=== PATIENT | male | born 1980 | race Caucasian/White ===

== ENCOUNTER 2023-11-06 11:00 | Emergency (ER) | payer OTHER, SELFPAY ==
[2023-11-06 11:21] VITALS: BP 132/63; PULSE 83; RESP 18; TEMP 36.4; O2SAT 97; BMI 26.5
--- NOTE | 2023-11-06 11:31 | ED_ITS ---
HPI - Wound/Laceration <ANAHI Jerome Last Filed: 11/06/23 12:56> General Chief Complaint: Wound/Laceration Stated Complaint: laceration on l hand Time Seen by Provider: 11/06/23 11:28 Source: patient Mode of arrival: Ambulatory History of Present Illness HPI narrative: This is a 42-year-old male presents emergency department due to left palm laceration. Patient was walking on some steps when he tripped and slammed his hand onto a exposed screw causing laceration to the palm of his hand. Maintains full flexion-extension of his fingers as well as the ability to internal control analyst things as well as abduct and adduct his thumb. His tetanus is not up-to-date. This happened last night. Related Data Previous Rx's Medication Instructions Recorded cephalexin 500 mg capsule 500 mg PO QID 7 days #28 caps 11/06/23 Allergies Allergy/AdvReac Type Severity Reaction Status Date / Time nickel Allergy Intermediate Blister Verified 11/06/23 11:25 Review of Systems <ANAHI Jerome Last Filed: 11/06/23 12:56> Review of Systems Narrative: GENERAL: Denies chills, fatigue, malaise, fever, sweats. HEENT: Denies sinus pain, ear pain, sore throat, difficulty swallowing, dizziness. RESPIRATORY: Denies dyspnea, cough, wheezing, hemoptysis, sputum. CARDIOVASCULAR: Denies chest pain, palpitations, orthopnea, edema, GASTROINTESTINAL: Denies nausea, vomiting, abdominal pain, diarrhea, constipation, melena. : Denies dysuria, frequency, incontinence, hematuria, urinary retention. MUSCULOSKELETAL: denies weakness, joint pain, or bony pain SKIN: Palm laceration NEUROLOGIC: Denies weakness, headache, numbness, change in speech, confusion, seizures, incoordination. PSYCHIATRIC: No concerning psychosocial issues. 12 point review of systems is negative except for those stated above Patient History <ANAHI Jerome Last Filed: 11/06/23 12:56> Social History Smoking Status: Never smoker Smoking Status: Never smoker alcohol intake frequency: a few times a month Substance Use Type: does not use Exam <ANAHI Jerome Last Filed: 11/06/23 12:56> Narrative Exam Narrative: GENERAL: Well-developed patient, in mild distress. HEAD: Atraumatic. Normocephalic. EYES: Pupils equal round and reactive. Extraocular motions intact. No scleral icterus. No injection or drainage. ENT: Nose without bleeding, purulent drainage. Throat without erythema, tonsillar hypertrophy or exudate. Airway patent. NECK: Trachea midline. Non tender EXTREMITIES: No edema or joint tenderness. NEURO: AOx3. SKIN: Approximately 4 cm laceration to the palm of the left hand. Full flexion and extension of the fingers as well as the ability to abduct and adduct his thumb. No active bleeding. Initial Vital Signs Initial Vital Signs: Vital Signs Temperature 97.6 F 11/06/23 11:21 Pulse Rate 83 11/06/23 11:21 Respiratory Rate 18 11/06/23 11:21 Blood Pressure 132/63 11/06/23 11:21 Pulse Oximetry 97 11/06/23 11:21 Oxygen Delivery Method Room Air 11/06/23 11:21 <Mike Lovelace DO - Last Filed: 11/06/23 15:59> Initial Vital Signs Initial Vital Signs: Vital Signs Temperature 97.6 F 11/06/23 11:21 Pulse Rate 83 11/06/23 11:21 Respiratory Rate 18 11/06/23 11:21 Blood Pressure 132/63 11/06/23 11:21 Pulse Oximetry 97 11/06/23 11:21 Oxygen Delivery Method Room Air 11/06/23 11:21 Procedures <Jeovanny Vilchis PA-C - Last Filed: 11/06/23 12:56> Laceration Repair Laceration 1: Time of procedure: 12:51 Site: hand Side (If applicable): left Size (cm): 4 Description: linear Depth: simple, single layer Local Anesthetic: lidocaine 1% and with epi Amount of anesthesia used (mL): 6 Pre-repair: wound explored, irrigated extensively and cleansed with chlorhexadine Skin layer closed with: nylon Skin layer suture size: 5-0 Number of sutures: 7 Technique: simple, interrupted Course <ANAHI Jerome Last Filed: 11/06/23 12:56> Orders Ordered: Discontinued Medications Hydrocodone Bitart/Acetaminophen (Hydrocodone/Acet 5/325 Tablet) 1 tab PO NOW ONE Stop: 11/06/23 11:43 Last Admin: 11/06/23 11:48 Dose: 1 tab Documented By: MICHELLE Diphtheria/Tetanus/Acell Pertussis (Tet,Diph,Pertuss(Acell),Vac/Pf 0.5 Ml Syringe) 0.5 ml IM .ONCE ONE Stop: 11/06/23 11:36 Last Admin: 11/06/23 11:48 Dose: 0.5 ml Documented By: MICHELLE Lidocaine/Epinephrine (Lidocaine 1% W/Epi) 4 ml INJ INTRA-OP ONE Stop: 11/06/23 11:35 Last Admin: 11/06/23 11:50 Dose: 4 ml Documented By: MICHELLE Vital Signs Vital signs: Vital Signs - 8 hr 11/06/23 11:21 11/06/23 13:01 Temperature 97.6 F 97.8 F Pulse Rate 83 78 Respiratory Rate 18 18 Blood Pressure 132/63 107/61 Pulse Oximetry 97 96 Oxygen Delivery Method Room Air Room Air <Mike Lovelace DO - Last Filed: 11/06/23 15:59> Orders Ordered: Discontinued Medications Hydrocodone Bitart/Acetaminophen (Hydrocodone/Acet 5/325 Tablet) 1 tab PO NOW ONE Stop: 11/06/23 11:43 Last Admin: 11/06/23 11:48 Dose: 1 tab Documented By: MICHELLE Diphtheria/Tetanus/Acell Pertussis (Tet,Diph,Pertuss(Acell),Vac/Pf 0.5 Ml Syringe) 0.5 ml IM .ONCE ONE Stop: 11/06/23 11:36 Last Admin: 11/06/23 11:48 Dose: 0.5 ml Documented By: MICHELLE Lidocaine/Epinephrine (Lidocaine 1% W/Epi) 4 ml INJ INTRA-OP ONE Stop: 11/06/23 11:35 Last Admin: 11/06/23 11:50 Dose: 4 ml Documented By: MICHELLE Vital Signs Vital signs: Vital Signs - 8 hr 11/06/23 11:21 11/06/23 13:01 Temperature 97.6 F 97.8 F Pulse Rate 83 78 Respiratory Rate 18 18 Blood Pressure 132/63 107/61 Pulse Oximetry 97 96 Oxygen Delivery Method Room Air Room Air MDM - Wound/Laceration <Jeovanny Vilchis PA-C - Last Filed: 11/06/23 12:56> MDM Narrative Medical decision making narrative: ED course: This is a 42-year-old male presents emergency department due to a laceration of the left hand that happened approximately 14 hours ago. Significant laceration and was closed without complications with sutures. We will prescribe antibiotics based on the nature of the wound for infection prophylaxis. Tetanus updated. Patient maintain full motion throughout his fingers and hands and very low concern for any kind of tendon injury. No possibility of foreign body. CC: Left hand laceration Complicating co-morbidities: None Data collected from: Previous notes Medical records reviewed: Patient has not been to the emergency department the past. Differential considered, but not limited to: Fracture, laceration, soft tissue injury, tendon injury Exam documented above, pertinent findings include: Maintains full range of motion to the hands and fingers Lab Test results independently reviewed as above. Pertinent findings: None obtained Imaging studies independently reviewed: None obtained Scores Used: None MIPS Elements: None Consultations: None Treatments: Laceration repair as documented above Re-evaluations: None Discussion: Discussed plan with the patient was comfortable with the plan Diagnosis: Left palm laceration Disposition: see below, along with detailed discharge instructions that have been reviewed with patient as well as indications for ED re-evaluation and additional outpatient follow up Discharge Plan Departure Patient Disposition: Home Clinical Impression: Laceration Instructions: DI for Laceration Repair Activity Restrictions/Additional Instructions: Thank you for coming to the [facility] Emergency Department today. I am glad that we are able to close the left hand laceration. Please continue to monitor the wound for any signs of infection. Please begin taking antibiotics to avoid any infections. You may follow up here with the walk-in clinic for suture removal in 10-14 days. Please return to the emergency department if you develop any significant fevers, redness going up the hand or arms, significant purulent discharge, or any other concerning signs or symptoms. I hope you feel better soon. Please follow up with your primary care provider within a week if your symptoms continue. If you do not have a primary care provider please contact the [facility] Resource line at [phone]. They will ask some questions about your medical history and help you get set up with a provider in the community. Prescriptions: New cephalexin 500 mg capsule 500 mg PO QID 7 Days Qty: 28 0RF Stand Alone Forms: Patient Portal/API ED Sign-out <Mike Lovelace, DO - Last Filed: 11/06/23 15:59> Cosign ED Attending Cosignature Attestation: Dr Lovelace Co-Sign Statement: I was available for consultation during this patient's emergency department visit. This chart is signed by myself for admini strative purposes only. I did not have direct contact with this patient during this visit. They were seen independently by the APC.
[2023-11-06] MEDS: HYDROCODONE/ACET 5/325 TABLET 1 TAB PO (11:48)
[2023-11-06] MEDS: TET,DIPH,PERTUSS(ACELL),VAC/PF 0.5 ML SYRINGE IM (11:48)
[2023-11-06] MEDS: LIDOCAINE 1% W/EPI 4 ML INJ (11:50)
[2023-11-06 13:01] VITALS: BP 107/61; PULSE 78; RESP 18; TEMP 36.6; O2SAT 96
== END 2023-11-06 13:04 | disposition home or self-care (01) ==
PROVIDERS: Emergency Provider Physician Assistant Medical
DX: S61.412A Laceration without foreign body of left hand, initial encounter (principal); W22.8XXA Striking against or struck by other objects, initial encounter; Z23 Encounter for immunization
CPT/HCPCS: 12002; 90471; 99283; 99284; 90715